=== PATIENT | male | born 1955 | race Caucasian/White ===

== ENCOUNTER 2017-01-08 07:09 | Day surgery (SDC) | payer MEDICAID ==
[2017-01-08] MEDS ORDERED: Midazolam 1 MG/ML 2 ML SDV ONE (07:17)
[2017-01-08] MEDS ORDERED: Propofol 200 MG/20 ML SDV ONE (07:17)
[2017-01-08] MEDS ORDERED: fentaNYL 100 MCG/2 ML SDV ONE (07:17)
[2017-01-08] MEDS ORDERED: Lidocaine 0.5% 50 ML SDV ONE (07:28)
[2017-01-08] MEDS ORDERED: Lactated Ringers 1,000 ML IV SCH (07:30)
[2017-01-08] MEDS ORDERED: ceFAZolin 2 GM in Sodium Chloride 0.9% 50 ML IV ONE (07:30)
[2017-01-08] MEDS ORDERED: Bupivacaine 0.5% 30 ML SDV ONE (08:01)
[2017-01-08] MEDS ORDERED: Povidone-Iodine 10% Soln 118.25 ML Bottle ONE (08:02)
[2017-01-08 10:22] VITALS: BP 145/93
--- NOTE | 2017-01-08 12:36 | OR ---
DATE OF PROCEDURE: 01/08/2017 PREOPERATIVE DIAGNOSIS: Right long finger recurrent ganglion cyst. POSTOPERATIVE DIAGNOSIS: Right long finger recurrent ganglion cyst. PROCEDURE: Removal of right long finger ganglion cyst. MERCHANT TAILOR: MESSI Cox. ANESTHESIA: Rosa Isela block plus conscious sedation. FLUID: Lactated Ringer solution. ESTIMATED BLOOD LOSS: Zero. COMPLICATIONS: None. SPECIMEN: Ganglion cyst. DISCHARGE DISPOSITION: Stable to PACU. INDICATIONS: The patient was seen in the clinic. He had a recurrent ganglion cyst on his long finger. Risks and benefits of the procedure were explained to the patient. Informed consent was obtained. DETAILS OF PROCEDURE: The patient was seen preoperatively by myself and the Anesthesia staff in the preoperative holding area where the operative site was marked. He was brought to the operative suite by Anesthesia staff where Rosa Isela block and conscious sedation was administered. The patient was then prepped and draped in a sterile manner. Time-out was called identifying the correct patient, correct procedure, the correct site, and antibiotics had begun with appropriate period of time. An incision was made over the area of the cyst in a longitudinal manner. Dissection was done using iris scissors. The ganglion did rupture. I grabbed with an Allis and then dissected as proximally as possible. I believe that the origin was the metacarpophalangeal joint, however at one point, I was no longer able to identify the stalk, so I did not enter into the joint. The incision was then closed with 3-0 nylon followed by sterile dressing. The patient was allowed to awaken from conscious sedation. The Rosa Isela block was let down to 30 minutes, and the patient was taken to the PACU in stable condition. Soham Penn DO /[id number]
== END 2017-01-08 10:20 | disposition home or self-care (01) ==
LOC: JP.SDS 07:09
PROVIDERS: ATTEND Orthopaedic Surgery
DX: M67.441 Ganglion, right hand (principal); Z88.8 Allergy status to other drugs, medicaments and biological substances; Z79.899 Other long term (current) drug therapy; Z98.890 Other specified postprocedural states
CPT/HCPCS: 26160; 36415; 80053; 85027; J0690; J2250; J2704; J3010; J7050; J7120; 88304